=== PATIENT | male | born 1930 | race Caucasian/White ===

== ENCOUNTER 2020-03-13 17:40 | Observation (INO) ==
[2020-03-13 18:33] LABS: Basophils % 0.3 % (0.0-0.8); Eosinophils # 0.2 10*3/uL (0.0-0.87); Eosinophils % 2.8 % (0.00-10.9); Hematocrit 41.7 VOL% (42.0-52.0); Hemoglobin 13.8 GM/DL (14.0-18.0); Immature Granulocytes % 0.3 %; Immature Granulocytes Absolute 0.02 #; Lymphocytes # 2.3 10*3/uL (1.4-4.0); Lymphocytes % 33.9 % (21.2-54.2); Mean Corpuscular HGB Conc 33.1 GM/DL (32-36); Mean Corpuscular Volume 97.7 FL (87-102); Mean Platelet Volume 10.2 FL (9.6-12.0); Monocytes % 7.3 % (1.7-12.7); Neutrophils % 55.4 % (38.7-73.9); Platelet Count 142 T/CUMM (130-400); Red Blood Count 4.27 MC/CUMM (3.8-5.5); Red Cell Distribution Width 13.9 % (9.3-17.3); White Blood Count 6.7 T/CUMM (4-12)
[2020-03-13 18:44] LABS: Alanine Aminotransferase 19 U/L (16-61); Albumin 3.4 G/DL (3.4-5.0); Alkaline Phosphatase 113 U/L (45-117); Aspartate Amino Transferase 18 U/L (0-37); Bilirubin,Total < 0.39 MG/DL (0.2-1.0); Blood Urea Nitrogen 41 MG/DL (7-18); Estimated Glom Filtration Rate 24 ML/MIN; Glucose 117 MG/DL (74-106); Total Protein 7.5 G/DL (6.4-8.3)
[2020-03-13 18:45] LABS: Troponin I < 0.015 NG/ML (0.00-0.045)
[2020-03-13 19:06] LABS: PT Patient Result 10.9 SECS (9.8-11.9); Partial Thromboplastin Time 27.4 SECS (23.9-33.8)
[2020-03-13] MEDS ORDERED: ENOXAPARIN 80 MG/0.8 ML SYRINGE SUBCUT ONE (21:19)
[2020-03-13] MEDS ORDERED: DEXTROSE 50% 25 GM/50 ML VIAL IV PRN (21:44)
[2020-03-13] MEDS ORDERED: ALUM/MAG/SIMETH/LIDO VISC 1:1 30 ML BOTTLE PO PRN (21:44)
[2020-03-13] MEDS ORDERED: GLUCAGON 1 MG VIAL IM PRN (21:44)
[2020-03-13] MEDS ORDERED: BISACODYL 5 MG TABLET PO PRN (21:44)
[2020-03-13] MEDS ORDERED: NITROGLYCERIN SL 0.4 MG TABLET SL PRN (21:44)
[2020-03-13] MEDS ORDERED: ACETAMINOPHEN 325 MG TABLET PO PRN (21:44)
[2020-03-13] MEDS ORDERED: MORPHINE 4 MG/1 ML VIAL IV PRN (21:44)
[2020-03-13] MEDS ORDERED: hydrALAZINE 20 MG/1 ML VIAL IV PRN (21:47)
[2020-03-13] MEDS ORDERED: ALBUTEROL 2.5 MG/3 ML NEB RESP TX PRN (21:48)
[2020-03-13 21:51] LABS: Troponin I < 0.015 NG/ML (0.00-0.045)
[2020-03-14 01:23] LABS: Troponin I < 0.015 NG/ML (0.00-0.045)
[2020-03-14 04:52] LABS: Troponin I < 0.015 NG/ML (0.00-0.045)
[2020-03-14] MEDS ORDERED: ASPIRIN EC 325 MG TABLET PO SCH (09:00)
[2020-03-14] MEDS ORDERED: FAMOTIDINE 20 MG TABLET PO SCH (09:00)
[2020-03-14] MEDS ORDERED: METOPROLOL TARTRATE 25 MG TABLET PO SCH (09:00)
[2020-03-14 11:58] VITALS: BP 104/51
[2020-03-15] MEDS ORDERED: ASPIRIN EC 81 MG TABLET PO SCH (09:00)
[2020-03-15] MEDS ORDERED: METOPROLOL SUCCINATE XL 25 MG TABLET PO SCH (09:00)
[2020-03-15] MEDS ORDERED: amLODIPine 10 MG TABLET PO SCH (09:00)
== END 2020-03-14 16:26 ==
LOC: EDBD → EDUNIT# → N.EDINP 17:40 → N.ED 17:40 → N.EDINP 22:37 → N.TELES 03-14 00:19
PROVIDERS: ADMIT Internal Medicine Geriatric Medicine; ATTEND Internal Medicine Geriatric Medicine